=== PATIENT | male | born 1970 | race Caucasian/White ===

== ENCOUNTER 2024-11-17 15:11 | Outpatient (CLI) | payer BC, SELFPAY | END 2024-11-17 15:12 | disposition home or self-care (01) | LOC: NFLDREF 11-22 15:44 | PROVIDERS: Visit Provider Family Medicine | DX: Z00.00 Encounter for general adult medical examination without abnormal findings (principal); Z13.1 Encounter for screening for diabetes mellitus; Z13.220 Encounter for screening for lipoid disorders; I10 Essential (primary) hypertension; Z76.89 Persons encountering health services in other specified circumstances; E66.811 Obesity, class 1; Z68.31 Body mass index [BMI] 31.0-31.9, adult; K76.0 Fatty (change of) liver, not elsewhere classified; Z87.81 Personal history of (healed) traumatic fracture; E78.5 Hyperlipidemia, unspecified | CPT/HCPCS: 80053; 80061 ==